=== PATIENT | female | born 1985 | race African-American/Black ===

== ENCOUNTER 2016-12-07 14:46 | Emergency (ER) | payer OTHER ==
[2016-12-07 15:02] VITALS: BP 133/94; PULSE 98; TEMP 98.4; BMI 17.2
[2016-12-07] MEDS ORDERED: SODIUM CHLORIDE 1,000 ML IV STA (15:53)
[2016-12-07 16:58] LABS: BASOPHIL 0.9 % (0-2.0); EOSINOPHIL 2.4 % (0-4.5); MCH 31.5 pg (25.7-33.7); MCHC 33.5 g/dl (32.0-36.0); MEAN CELL VOLUME 93.9 fl (80-96); MEAN PLT VOLUME 7.5 fl (7.5-11.1); NEUTROPHILS 63.2 % (42.8-82.8); PLATELET COUNT 253 K/MM3 (134-434); RDW 12.7 % (11.6-15.6); WHITE BLOOD COUNT 6.2 K/mm3 (4.0-10.0)
--- NOTE | 2016-12-07 17:15 | PDOC ---
*Physical Exam - Vital Signs Last Vital Signs Temp Pulse Resp BP Pulse Ox 98.4 F 98 H 18 133/94 95 12/07/16 15:00 12/07/16 15:00 12/07/16 15:00 12/07/16 15:00 12/07/16 15:00 ED Treatment Course - LABORATORY CBC & Chemistry Diagram: 12/07/16 16:36 12/07/16 16:36 - ADDITIONAL ORDERS Additional order review: 12/07/16 16:36 RBC 3.88 MCV 93.9 MCHC 33.5 RDW 12.7 D MPV 7.5 Neutrophils % 63.2 Lymphocytes % 28.4 D Monocytes % 5.1 Eosinophils % 2.4 Basophils % 0.9 Medical Decision Making - Medical Decision Making 12/07/16 17:15 Case discussed with [facility] Plan as per [facility]
[2016-12-07 17:29] LABS: ANION GAP 8 (8-16); BILIRUBIN,TOTAL 0.4 mg/dL (0.2-1.0); CO2 25 mmol/L (21-32); CREATININE 0.7 mg/dL (0.55-1.02); GLUCOSE,RANDOM 72 mg/dL (74-106); MAGNESIUM 2.1 mg/dL (1.8-2.4); SGOT/AST 15 U/L (15-37); SGPT/ALT 42 U/L (12-78); TOT PROT 7.1 g/dl (6.4-8.2)
[2016-12-07 17:32] LABS: ALK PHOS 66 U/L (45-117); TROPONIN I < 0.02 ng/ml (0.00-0.05)
--- NOTE | 2016-12-07 17:58 | PDOC ---
History of Present Illness - General Chief Complaint: Pain Stated Complaint: PAIN Time Seen by Provider: 12/07/16 15:20 History Source: Patient Exam Limitations: No Limitations - History of Present Illness Initial Comments: 12/07/16 15:53 31-year-old female with history of anxiety depression and pancreatitis presents with complaints of decreased appetite, decreased energy, back pain, neck pain, leg pain, abdominal pain and chest pain. Patient states has felt very anxious after her father causing her decreased appetite but denies any hopelessness plan to injure self or others. Patient states is currently on Xanax and Remeron with moderate improvement of symptoms. Patient is awake fever , chills, headache, dizziness, palpitations, nausea, diarrhea, dysuria or irregular menses. Timing/Duration: getting worse, intermittent Severity: moderate Associated Symptoms: reports: chest pain, loss of appetite, weakness Past History - Travel Traveled outside of the country in the last 30 days: No Close contact w/someone who was outside of country & ill: No - Past Medical History Allergies/Adverse Reactions: Allergies Allergy/AdvReac Type Severity Reaction Status Date / Time shrimp Allergy Severe Verified 03/30/16 19:29 iodine [Iodine] Allergy Mild Swelling Verified 03/30/16 19:29 duloxetine HCl AdvReac Mild anxious, Verified 03/30/16 19:29 [From Cymbalta] panic tramadol HCl [From Rybix ODT] AdvReac Mild Nausea Verified 03/30/16 19:29 acetaminophen [From Tylenol] AdvReac Verified 03/30/16 19:38 Home Medications: Ambulatory Orders Albuterol 2.5/Ipratropium 0.5 [Duoneb -] 1 neb NEB Q4H #14 vial 03/30/16 Albuterol Sulfate Inhaler - [Ventolin Hfa Inhaler -] 1 - 2 inh PO Q4H #1 inhaler 03/30/16 Alprazolam [Xanax] 1 mg PO BID 03/30/16 Mirtazapine [Remeron -] 15 mg PO DAILY 03/30/16 Nebulizer Accessories [A.i.r.s. Nebulizer] 1 each MC ONCE #1 kit 03/30/16 Nebulizer Accessories [Adult Aerosol Mask] 1 each MC ONCE #1 each 03/30/16 Prednisone [Deltasone -] 40 mg PO DAILY #10 tablet 03/30/16 Anemia: Yes Asthma: No Cancer: No Cardiac Disorders: No Diabetes: No HTN: No Psychiatric Problems: Yes (ANXIETY) Suicide Attempt (Hx): No Seizures: No Thyroid Disease: No - Surgical History Abdominal Surgery: No Appendectomy: No Cardiac Surgery: No Cholecystectomy: No Orthopedic Surgery: Yes (R KNEE) - Reproductive History Para: 1 Therapeutic (s) & number: Yes - Immunization History Immunization Up to Date: Yes - Psycho/Social/Smoking Cessation Hx Anxiety: No Suicidal Ideation: No Smoking Status: Yes Smoking History: Current every day smoker Have you smoked in the past 12 months: Yes Number of Cigarettes Smoked Daily: 5 If you are a former smoker, when did you quit?: June 2015 Information on smoking cessation initiated: No 'Breaking Loose' booklet given: 10/29/14 Hx Alcohol Use: No Drug/Substance Use Hx: No Substance Use Type: None Hx Substance Use Treatment: No Patient Lives Alone: No Lives with/in: parents (I) Review of Systems - Review of Systems Able to Perform ROS?: Yes Constitutional: Yes: Loss of Appetite, Weakness HEENTM: No: Symptoms Reported Respiratory: No: Symptoms reported Cardiac (ROS): Yes: Chest Pain ABD/GI: Yes: Poor Appetite, Poor Fluid Intake, Abdominal cramping : No: Symptoms Reported Musculoskeletal: Yes: Back Pain Integumentary: No: Symptoms Reported Neurological: Yes: Weakness Psychiatric: Yes: Anxiety, Depression, Frequent Crying, Stressors, Sleep Pattern Change, Change in Appetite Endocrine: No: Symptoms Reported Hematologic/Lymphatic: No: Symptoms Reported *Physical Exam - Vital Signs Last Vital Signs Temp Pulse Resp BP Pulse Ox 98.4 F 98 H 18 133/94 95 12/07/16 15:00 12/07/16 15:00 12/07/16 15:00 12/07/16 15:00 12/07/16 15:00 - Physical Exam General Appearance: Yes: Nourished, Appropriately Dressed, Thin. No: Apparent Distress HEENT: positive: EOMI, JAMES, TMs Normal, Pharynx Normal (dry and a good). negative: Pale Conjunctivae Neck: positive: Supple Respiratory/Chest: positive: Lungs Clear, Normal Breath Sounds. negative: Respiratory Distress, Accessory Muscle Use Cardiovascular: positive: Regular Rhythm, Regular Rate. negative: Murmur Gastrointestinal/Abdominal: positive: Soft. negative: Tenderness Musculoskeletal: negative: CVA Tenderness Extremity: positive: Normal Capillary Refill. negative: Pedal Edema Integumentary: positive: Normal Color, Warm, Moist Neurologic: positive: Normal Mood/Affect, Motor Strength 5/5 (ambulatory) ED Treatment Course - LABORATORY CBC & Chemistry Diagram: 12/07/16 16:36 12/07/16 16:36 - ADDITIONAL ORDERS Additional order review: Laboratory Results 12/07/16 16:36 Sodium 142 Potassium 3.9 Chloride 109 H Carbon Dioxide 25 Anion Gap 8 BUN 10 D Creatinine 0.7 Creat Clearance w eGFR > 60 Random Glucose 72 L D Calcium 9.0 Magnesium 2.1 Total Bilirubin 0.4 D AST 15 ALT 42 D Alkaline Phosphatase 66 D Creatine Kinase 92 Troponin I < 0.02 Total Protein 7.1 Albumin 4.0 D Lipase 117 12/07/16 16:36 RBC 3.88 MCV 93.9 MCHC 33.5 RDW 12.7 D MPV 7.5 Neutrophils % 63.2 Lymphocytes % 28.4 D Monocytes % 5.1 Eosinophils % 2.4 Basophils % 0.9 Medical Decision Making - Medical Decision Making 12/07/16 17:56 Patient here with anxiety and depression stating she is unable to eat having decreased energy and weight loss. Patient has generalized body discomfort and on exam had no acute findings except for likely dehydration patient ordered for full work up including cardiac profile, EKG, electrolytes, CBC, lipase secondary to history of pancreatitis a few years ago, IV fluids, and urinalysis/ /drug toxicology
[2016-12-07 18:30] LABS: URINE APPEARANCE CLEAR; URINE BILIRUBIN NEGATIVE (NEGATIVE); URINE BLOOD NEGATIVE (NEGATIVE); URINE COLOR STRAW; URINE GLUCOSE (UA) NEGATIVE (NEGATIVE); URINE KETONE TRACE (NEGATIVE); URINE NITRITE NEGATIVE (NEGATIVE); URINE PROTEIN NEGATIVE (NEGATIVE); URINE UROBILINOGEN NEGATIVE E.U./dl (0.2-1.0)
[2016-12-07 18:37] LABS: URINE LEUK ESTERASE 2+ (NEGATIVE)
[2016-12-07 18:45] LABS: URINE MARIJUANA THC POSITIVE ng/ml (CUTOFF=50)
[2016-12-07] MEDS ORDERED: KETOROLAC TROMETHAMINE 30 MG/1 ML VIAL IVPUSH ONE (19:24)
[2016-12-07] MEDS ORDERED: oxyCODONE HCL 5 MG TABLET PO ONE (20:02)
--- NOTE | 2016-12-07 20:14 | PDOC ---
*Physical Exam - Vital Signs Last Vital Signs Temp Pulse Resp BP Pulse Ox 98.4 F 98 H 18 133/94 95 12/07/16 15:00 12/07/16 15:00 12/07/16 15:00 12/07/16 15:00 12/07/16 15:00 - Physical Exam Comments: 12/07/16 20:04 Sign-out received from outgoing ER provider Douglas. Pt interviewed and examined. Ancillary studies reviewed. Awaiting labs. Patient continues to complain of pain. Serum preg negative, will order Toradol. Patient refuses Toradol and states she does not want morphine because "it doesn' t feel right in my body." She states that she was given Dilaudid previously which made her feel better. Had extensive conversation with patient regarding pain medications, patient states she has been to pain management doctors before and that she has used oxycodone previously which "I guess helped." When patient was told she would not be getting Dilaudid she began getting agitated and states "Well then just give me the paperwork so I can go home." Patient reports that her children's father will be picking her up and that she would not be driving. Told patient that she would receive one oxycodone prior to discharge and that she needs to continue following up with pain management for further management of her pain. Patient verbalized understanding and agreed to plan. ED Treatment Course - LABORATORY CBC & Chemistry Diagram: 12/07/16 16:36 12/07/16 16:36 - ADDITIONAL ORDERS Additional order review: Laboratory Results 12/07/16 12/07/16 12/07/16 18:19 16:45 16:36 Sodium 142 Potassium 3.9 Chloride 109 H Carbon Dioxide 25 Anion Gap 8 BUN 10 D Creatinine 0.7 Creat Clearance w eGFR > 60 Random Glucose 72 L D Calcium 9.0 Magnesium 2.1 Total Bilirubin 0.4 D AST 15 ALT 42 D Alkaline Phosphatase 66 D Creatine Kinase 92 Troponin I < 0.02 Total Protein 7.1 Albumin 4.0 D Lipase 117 Serum , Qual Negative Urine Color Urine Appearance Urine pH Urine Protein Urine Glucose (UA) Urine Ketones Urine Blood Urine Nitrite Urine Bilirubin Urine Urobilinogen Ur Leukocyte Esterase Opiates Screen Positive Methadone Screen Negative Barbiturate Screen Negative Phencyclidine Screen Negative Ur Amphetamines Screen Negative MDMA (Ecstasy) Screen Negative Benzodiazepines Screen Positive Cocaine Screen Negative U Marijuana (THC) Screen Positive 12/07/16 16:36 Sodium Potassium Chloride Carbon Dioxide Anion Gap BUN Creatinine Creat Clearance w eGFR Random Glucose Calcium Magnesium Total Bilirubin AST ALT Alkaline Phosphatase Creatine Kinase Troponin I Total Protein Albumin Lipase Serum , Qual Urine Color Straw Urine Appearance Clear Urine pH 7.0 Urine Protein Negative Urine Glucose (UA) Negative Urine Ketones Trace H Urine Blood Negative Urine Nitrite Negative Urine Bilirubin Negative Urine Urobilinogen Negative Ur Leukocyte Esterase 2+ H Opiates Screen Methadone Screen Barbiturate Screen Phencyclidine Screen Ur Amphetamines Screen MDMA (Ecstasy) Screen Benzodiazepines Screen Cocaine Screen U Marijuana (THC) Screen 12/07/16 16:36 RBC 3.88 MCV 93.9 MCHC 33.5 RDW 12.7 D MPV 7.5 Neutrophils % 63.2 Lymphocytes % 28.4 D Monocytes % 5.1 Eosinophils % 2.4 Basophils % 0.9 *DC/Admit/Observation/Transfer Diagnosis at time of Disposition: Generalized pain - Discharge Dispostion Disposition: HOME Condition at time of disposition: Stable Admit: No - Referrals Referrals: Senthil Barry MD [Staff Physician] - - Patient Instructions Additional Instructions: Please follow up with pain management for further evaluation of your pain as discussed. If you experience any new or worsening symptoms, please return to the ER.
[2016-12-07] MEDS ORDERED: oxyCODONE HCL 5 MG TABLET ONE (20:15)
--- NOTE | 2016-12-08 12:27 | EKG ---
Test Reason : Blood Pressure : / mmHG Vent. Rate : 077 BPM Atrial Rate : 077 BPM P-R Int : 164 ms QRS Dur : 074 ms QT Int : 348 ms P-R-T Axes : 050 015 047 degrees QTc Int : 393 ms NORMAL SINUS RHYTHM NORMAL ECG WHEN COMPARED WITH ECG OF 27-NOV-2015 16:13, NO SIGNIFICANT CHANGE WAS FOUND Confirmed by JANIS ONEIL MD ([id number]) on 12/08/2016 12:27:04 PM Referred By: Confirmed By:JANIS ONEIL MD
== END 2016-12-07 20:42 | disposition home or self-care (01) ==
LOC: JER 14:46
PROC: 3E0337Z Introduction of Electrolytic and Water Balance Substance into Peripheral Vein, Percutaneous Approach (ICD-10-PCS; principal; 2016-12-07)
DX: F41.8 Other specified anxiety disorders (principal)
CPT/HCPCS: 36415; 80053; 80307; 81003; 81015; 82550; 83690; 83735; 84484; 84703; 85025; 93005; 93010; 96360; 99283-25

== ENCOUNTER 2018-03-14 19:42 | Emergency (ER) | payer OTHER ==
[2018-03-14 20:05] VITALS: BP 123/95; PULSE 81; TEMP 98.9; BMI 19.8
--- NOTE | 2018-03-14 20:27 | PDOC ---
History of Present Illness - General Chief Complaint: Ear Problem Stated Complaint: EAR PAIN Time Seen by Provider: 03/14/18 20:14 - History of Present Illness Initial Comments: 32-year-old female without comorbidities presents for evaluation of right ear pain 2 weeks without associated symptoms. 03/14/18 20:23 Past History - Past Medical History Allergies/Adverse Reactions: Allergies Allergy/AdvReac Type Severity Reaction Status Date / Time shrimp Allergy Severe Verified 03/30/16 19:29 iodine [Iodine] Allergy Mild Swelling Verified 03/30/16 19:29 duloxetine HCl AdvReac Mild anxious, Verified 03/30/16 19:29 [From Cymbalta] panic tramadol HCl [From Rybix ODT] AdvReac Mild Nausea Verified 03/30/16 19:29 acetaminophen [From Tylenol] AdvReac Verified 03/30/16 19:38 Home Medications: Ambulatory Orders Mirtazapine [Remeron -] 15 mg PO DAILY 03/30/16 Oxycodone HCl [Oxycodone HCl ER] 15 mg PO Q6H 12/07/16 Alprazolam 2 mg PO ASDIR 03/14/18 Neomycin/Polymyxn/Hc [Cortisporin Otic Solution -] 4 drop AD QID 7 Days #1 bottle 03/14/18 Quetiapine Fumarate [Seroquel -] 50 mg PO HS 03/14/18 Venlafaxine HCl [Effexor -] 25 mg PO BID 03/14/18 Anemia: Yes Asthma: No Cancer: No Cardiac Disorders: No Diabetes: No HTN: No Psychiatric Problems: Yes (ANXIETY) Seizures: No Thyroid Disease: No - Surgical History Abdominal Surgery: No Appendectomy: No Cardiac Surgery: No Cholecystectomy: No Orthopedic Surgery: Yes (R KNEE) - Reproductive History Para: 1 Therapeutic (s) & number: Yes - Immunization History Immunization Up to Date: Yes - Suicide/Smoking/Psychosocial Hx Smoking Status: Yes Smoking History: Never smoked Have you smoked in the past 12 months: No Number of Cigarettes Smoked Daily: 5 If you are a former smoker, when did you quit?: June 2015 Information on smoking cessation initiated: No 'Breaking Loose' booklet given: 10/29/14 Hx Alcohol Use: No Drug/Substance Use Hx: No Substance Use Type: None Hx Substance Use Treatment: No Review of Systems - Review of Systems HEENTM: Yes: Ear Pain All Other Systems: Reviewed and Negative *Physical Exam - Vital Signs Last Vital Signs Temp Pulse Resp BP Pulse Ox 98.9 F 81 16 123/95 100 03/14/18 20:04 03/14/18 20:04 03/14/18 20:04 03/14/18 20:04 03/14/18 20:04 - Physical Exam Comments: HEAD: NC/AT EYES: Conjuntiva clear Ears: Left ear canal and tympanic membrane are normal. Right ear canal has mild purulent drainage and a ruptured tympanic membrane NOSE: No d/c THROAT: Moist mucous membrances, oral pharanx clear, uvula midline NECK: Supple without adenopathy CARDIAC: S1 S2 LUNGS: CTA Full and Equal breath sounds ABDOMEN: Soft NT ND MS: Full ROM in all joints without edema NEUROLOGIC: No gross sensory or motor deficits, NVID SKIN: Normal color and temperature no lesions or rashes 03/14/18 20:23 *DC/Admit/Observation/Transfer Diagnosis at time of Disposition: Otitis externa, Ruptured tympanic membrane - Discharge Dispostion Disposition: HOME Condition at time of disposition: Stable Decision to Admit order: No - Referrals Referrals: Cortez Arshad MD [Staff Physician] - - Patient Instructions Printed Discharge Instructions: Otitis Externa, DI for Otitis Externa, Ruptured Eardrum, DI for Tympanic Membrane Perforation-Adult Additional Instructions: Return to the emergency room should symptoms worsen or go unresolved. Please follow-up with ENT in one to 2 days for further evaluation and treatment options. May take Tylenol and Motrin for pain or discomfort he may have as directed. - Post Discharge Activity
== END 2018-03-14 20:29 | disposition home or self-care (01) ==
LOC: JERFT 19:42
DX: H60.8X1 Other otitis externa, right ear (principal); H72.91 Unspecified perforation of tympanic membrane, right ear; D64.9 Anemia, unspecified; F41.8 Other specified anxiety disorders
CPT/HCPCS: 99281-25

== ENCOUNTER 2018-05-16 21:11 | Emergency (ER) | payer OTHER ==
--- NOTE | 2018-05-16 21:27 | PDOC ---
Rapid Medical Evaluation Time Seen by Provider: 05/16/18 21:25 Medical Evaluation: Allergies Allergy/AdvReac Type Severity Reaction Status Date / Time shrimp Allergy Severe Verified 03/30/16 19:29 iodine [Iodine] Allergy Mild Swelling Verified 03/30/16 19:29 duloxetine HCl AdvReac Mild anxious, Verified 03/30/16 19:29 [From Cymbalta] panic tramadol HCl [From Rybix ODT] AdvReac Mild Nausea Verified 03/30/16 19:29 acetaminophen [From Tylenol] AdvReac Verified 03/30/16 19:38 05/16/18 21:25 I have performed a brief in-person evaluation of this patient. The patient presents with a chief complaint of: post-prandial abd pain Pertinent physical exam findings: +BS. SNTND. No masses. I have ordered the following: labs, urine, U/S The patient will proceed to the ED for further evaluation. Discharge Disposition - Diagnosis Abdominal pain - Referrals - Patient Instructions - Post Discharge Activity
[2018-05-16 22:07] LABS: URINE APPEARANCE SLCLOUDY; URINE BILIRUBIN NEGATIVE (<2.0 mg/dL); URINE COLOR YELLOW; URINE GLUCOSE (UA) NEGATIVE (NEGATIVE); URINE KETONE NEGATIVE (NEGATIVE); URINE LEUK ESTERASE NEGATIVE (NEGATIVE); URINE NITRITE NEGATIVE (NEGATIVE); URINE PROTEIN 1+ (NEGATIVE); URINE UROBILINOGEN NEGATIVE mg/dL (0.2-1.0)
== END 2018-05-16 21:30 | disposition left against medical advice (07) ==
LOC: JER 21:11
DX: R10.84 Generalized abdominal pain (principal)
CPT/HCPCS: 81003; 81015; 99281-25

== ENCOUNTER 2018-08-23 17:50 | Emergency (ER) | payer OTHER ==
[2018-08-23 18:21] VITALS: BP 136/95; PULSE 106; TEMP 98.3; BMI 19.5
--- NOTE | 2018-08-23 18:22 | PDOC ---
Rapid Medical Evaluation Chief Complaint: Cold Symptoms Medical Evaluation: Allergies Allergy/AdvReac Type Severity Reaction Status Date / Time shrimp Allergy Severe Verified 08/23/18 18:18 iodine [Iodine] Allergy Mild Swelling Verified 08/23/18 18:18 duloxetine HCl AdvReac Mild anxious, Verified 08/23/18 18:18 [From Cymbalta] panic tramadol HCl [From Rybix ODT] AdvReac Mild Nausea Verified 08/23/18 18:18 acetaminophen [From Tylenol] AdvReac Verified 08/23/18 18:18 03 18:22 I have performed a brief in-person evaluation of this patient. The patient presents with a chief complaint of: cough, cold symptoms / weakness x 2 days - children ill with same Pertinent physical exam findings: pale/ congested I have ordered the following: influenza The patient will proceed to the ED for further evaluation.
[2018-08-23] MEDS ORDERED: IBUPROFEN 600 MG TABLET (FP) PO ONE ×2 (19:04→19:27)
--- NOTE | 2018-08-23 19:06 | PDOC ---
History of Present Illness - General Chief Complaint: Cold Symptoms Stated Complaint: SORE THROAT/EAR ACHE/CHEST PAIN Time Seen by Provider: 08/23/18 19:03 History Source: Patient, Parent(s) - History of Present Illness Initial Comments: 08/23/18 20:16 32-year-old female with body aches, throat pain, URI, congestion at home for the last 2 days. Patient is here with 2 children with similar symptoms. Denies fevers/chills. Denies nausea, vomiting, diarrhea, Adriel pain, urinary symptoms , chest pain Past medical history of asthma, smoker, mental illness Past History - Past Medical History Allergies/Adverse Reactions: Allergies Allergy/AdvReac Type Severity Reaction Status Date / Time shrimp Allergy Severe Verified 08/23/18 18:18 iodine [Iodine] Allergy Mild Swelling Verified 08/23/18 18:18 duloxetine HCl AdvReac Mild anxious, Verified 08/23/18 18:18 [From Cymbalta] panic tramadol HCl [From Rybix ODT] AdvReac Mild Nausea Verified 08/23/18 18:18 acetaminophen [From Tylenol] AdvReac Verified 08/23/18 18:18 Home Medications: Ambulatory Orders Mirtazapine [Remeron -] 15 mg PO DAILY 03/30/16 Oxycodone HCl [Oxycodone HCl ER] 15 mg PO Q6H 12/07/16 Alprazolam 2 mg PO ASDIR 03/14/18 Neomycin/Polymyxn/Hc [Cortisporin Otic Solution -] 4 drop AD QID 7 Days #1 bottle 03/14/18 Quetiapine Fumarate [Seroquel -] 50 mg PO HS 03/14/18 Venlafaxine HCl [Effexor -] 25 mg PO BID 03/14/18 Amoxicillin - [Amoxicillin 875mg Tablet -] 875 mg PO BID #20 tablet 08/23/18 Anemia: Yes Asthma: No Cancer: No Cardiac Disorders: No Diabetes: No HTN: No Psychiatric Problems: Yes (ANXIETY) Seizures: No Thyroid Disease: No - Surgical History Abdominal Surgery: No Appendectomy: No Cardiac Surgery: No Cholecystectomy: No Orthopedic Surgery: Yes (R KNEE) - Reproductive History Para: 1 Therapeutic (s) & number: Yes - Immunization History Immunization Up to Date: Yes - Suicide/Smoking/Psychosocial Hx Smoking Status: Yes Smoking History: Current every day smoker Have you smoked in the past 12 months: No Number of Cigarettes Smoked Daily: 20 If you are a former smoker, when did you quit?: June 2015 Information on smoking cessation initiated: No 'Breaking Loose' booklet given: 10/29/14 Hx Alcohol Use: No Drug/Substance Use Hx: No Substance Use Type: None Hx Substance Use Treatment: No Respiratory Specific PMHX - Complaint Specific PMHX Angina: No Bronchitis: Yes Pneumonia: No Pulmonary Embolus: No TB (Tuberculosis): No Review of Systems - Review of Systems Able to Perform ROS?: Yes Is the patient limited [place]uran proficient: No Constitutional: No: Symptoms Reported, See HPI, Chills, Diaphoresis, Fever, Loss of Appetite, Malaise, Night Sweats, Weakness, Weight Stable, Unintentional Wgt. Loss, Unexplained wgt Loss, Other HEENTM: Yes: Nose Congestion, Throat Pain. No: Symptoms Reported, See HPI, Eye Pain, Blurred Vision, Tearing, Recent change in vision, Double Vision, Cataracts , Ear Pain, Ocular Prothesis, Ear Discharge, Nose Pain, Tinnitus, Nose Bleeding , Hearing Loss, Throat Swelling, Mouth Pain, Dental Problems, Difficulty Swallowing, Mouth Swelling, Other Respiratory: Yes: Cough. No: Symptoms reported, See HPI, Orthopnea, Shortness of Breath, SOB with Exertion, SOB at Rest, Stridor, Wheezing, Productive cough, Hemoptysis, Other Cardiac (ROS): No: Symptoms Reported, See HPI, Chest Pain, Edema, Irregular Heart Rate, Lightheadedness, Palpitations, Syncope, Chest Tightness, Other *Physical Exam - Vital Signs Last Vital Signs Temp Pulse Resp BP Pulse Ox 98.3 F 106 H 20 136/95 98 08/23/18 18:19 08/23/18 18:19 08/23/18 18:19 08/23/18 18:19 08/23/18 18:19 - Physical Exam General Appearance: Yes: Appropriately Dressed HEENT: positive: Pharyngeal Erythema Neck: positive: Lymphadenopathy (R), Lymphadenopathy (L) Respiratory/Chest: positive: Lungs Clear, Normal Breath Sounds Cardiovascular: positive: Regular Rhythm, Regular Rate Gastrointestinal/Abdominal: positive: Normal Bowel Sounds, Soft Musculoskeletal: positive: Normal Inspection Extremity: positive: Normal Capillary Refill, Normal Inspection, Normal Range of Motion Integumentary: positive: Normal Color, Dry, Warm Neurologic: positive: Fully Oriented, Alert, Normal Mood/Affect Moderate Sedation - Procedure Monitoring Vital Signs: Procedure Monitoring Vital Signs Temperature 98.3 F 08/23/18 18:19 Pulse Rate 106 H 08/23/18 18:19 Respiratory Rate 20 08/23/18 18:19 Blood Pressure 136/95 08/23/18 18:19 O2 Sat by Pulse Oximetry (%) 98 08/23/18 18:19 Progress Note - Progress Note Progress Note: A: uri p: supportive care close PCP follow up *DC/Admit/Observation/Transfer Diagnosis at time of Disposition: Pharyngitis Qualifiers: Pharyngitis/tonsillitis etiology: streptococcus Qualified Code(s): J02.0 - Streptococcal pharyngitis - Discharge Dispostion Disposition: HOME - Prescriptions Prescriptions: Amoxicillin - [Amoxicillin 875mg Tablet -] 875 mg PO BID #20 tablet - Referrals - Patient Instructions Printed Discharge Instructions: Strep Throat Additional Instructions: encourage plenty of fluid in take take Tylenol every 6 hours as needed for pain take ibuprofen every 6 hours as needed for pain - Post Discharge Activity Forms/Work/School Notes: Back to Work
== END 2018-08-23 20:39 | disposition home or self-care (01) ==
LOC: JERFT 17:50
DX: J02.0 Streptococcal pharyngitis (principal); B95.0 Streptococcus, group A, as the cause of diseases classified elsewhere; F41.8 Other specified anxiety disorders; Z88.8 Allergy status to other drugs, medicaments and biological substances
CPT/HCPCS: 87804; 87880; 99281-25

== ENCOUNTER 2019-06-22 22:18 | Emergency (ER) | payer OTHER ==
[2019-06-22 22:36] VITALS: BP 121/76; TEMP 97.8; BMI 18.5
--- NOTE | 2019-06-22 23:48 | PDOC ---
Attending Attestation - Resident Resident Name: Jose Adams - HPI HPI: 06/23/19 01:30 Pt presents to the ED complaining of pleuritic chest wall pain after sleeping on a toy. Also complains of shortness of breath that seems to be primarily related to the pain. Denies fever or cough. patient is a smoker, but denies OCP use. - Physicial Exam PE: 06/23/19 01:58 Agree with resident exam. PAtient is alert and oriented an in no acute distress. Lungs are clear. + R sided chest wall tenderness. CV: rrr no m/r/g. - Medical Decision Making 06/23/19 01:59 Pt presents to the ED complaining of pleuritic chest pain. PERC negative. CXR is normal. Pain is most consistent with muscular chest pain. Will give pain control and discharge home with instructions to return to the ED for worsening symptoms.
[2019-06-23] MEDS ORDERED: ACETAMINOPHEN 325 MG TABLET (FP) ONE (00:21)
--- NOTE | 2019-06-23 00:24 | PDOC ---
History of Present Illness - History of Present Illness Initial Comments: The pt is a 33F w/ a history of anxiety who presents for evaluation of 4 days of R thoracic wall pain. The pain is intermittent, achy, worse with cough/touch/ movement of RUE, and not alleviated by anything she can identify. She also reports 3-4 days of myalgias, fatigue, N, NBNB x1 yesterday, diarrhea which has since resolved. Tried taking something for her symptoms early today with some relief early today. She denies fevers, SOB, vision changes, GONZALEZ, changes in sensation, weakness, dysuria, hematuria, or blood in her stool. Denies recent travel, OCPs, history of DVT/PE, or family history of DVT/PE 06/23/19 00:23 <Jose Adams - Last Filed: 06/23/19 01:00> <Parvin Casillas - Last Filed: 06/23/19 01:34> - General Chief Complaint: Pain Stated Complaint: CHEST PAIN Time Seen by Provider: 06/22/19 23:47 Past History - Past Medical History Anemia: Yes Asthma: Yes Cancer: No Cardiac Disorders: No COPD: No Diabetes: No HTN: No Psychiatric Problems: Yes (ANXIETY) Seizures: No Thyroid Disease: No - Surgical History Abdominal Surgery: No Appendectomy: No Cardiac Surgery: No Cholecystectomy: No Orthopedic Surgery: Yes (R KNEE) - Reproductive History Para: 1 Therapeutic (s) & number: Yes - Immunization History Immunization Up to Date: Yes - Psycho Social/Smoking Cessation Hx Smoking Status: Yes Smoking History: Current every day smoker Have you smoked in the past 12 months: No Number of Cigarettes Smoked Daily: 10 If you are a former smoker, when did you quit?: June 2015 Information on smoking cessation initiated: No 'Breaking Loose' booklet given: 10/29/14 Hx Alcohol Use: No Drug/Substance Use Hx: No Substance Use Type: None Hx Substance Use Treatment: No <Jose Adams - Last Filed: 06/23/19 01:00> <Parvin Casillas - Last Filed: 06/23/19 01:34> - Past Medical History Allergies/Adverse Reactions: Allergies Allergy/AdvReac Type Severity Reaction Status Date / Time shrimp Allergy Severe Verified 06/22/19 22:33 iodine [Iodine] Allergy Mild Swelling Verified 06/22/19 22:33 duloxetine HCl AdvReac Mild anxious, Verified 06/22/19 22:33 [From Cymbalta] panic tramadol HCl [From Rybix ODT] AdvReac Mild Nausea Verified 06/22/19 22:33 acetaminophen [From Tylenol] AdvReac Verified 06/22/19 22:33 Home Medications: Ambulatory Orders Alprazolam [Xanax] 2 mg PO BID 06/22/19 Ibuprofen [Motrin -] 600 mg PO TID #21 tablet 06/23/19 Review of Systems - Review of Systems Able to Perform ROS?: Yes Comments:: GENERAL/CONSTITUTIONAL: No fever or chills HEAD, EYES, EARS, NOSE AND THROAT: No change in vision. No change in hearing. No sore throat CARDIOVASCULAR: No shortness of breath RESPIRATORY: Denies hemoptysis GASTROINTESTINAL: No nausea, vomiting, diarrhea or constipation today GENITOURINARY: No dysuria, frequency, or change in urination MUSCULOSKELETAL: per HPI SKIN: No rash NEUROLOGIC: No headache, vertigo, loss of consciousness, or change in strength/ sensation ENDOCRINE: No increased thirst. No abnormal weight change HEMATOLOGIC/LYMPHATIC: No anemia, easy bleeding, or history of blood clots ALLERGIC/IMMUNOLOGIC: No hives or skin allergy 06/23/19 01:01 Is the patient limited Pakistani proficient: No <Jose Adams - Last Filed: 06/23/19 01:00> *Physical Exam - Vital Signs Last Vital Signs Temp Pulse Resp BP Pulse Ox 97.8 F 94 H 18 121/76 97 06/22/19 22:33 06/22/19 22:33 06/22/19 22:33 06/22/19 22:33 06/22/19 22:33 - Physical Exam GENERAL: Awake, alert, and oriented to person/place/time, in no acute distress HEAD: No signs of trauma, normocephalic, atraumatic EYES: PERRLA, EOMI, sclera anicteric, conjunctiva clear ENT: Hearing grossly normal, nares patent, oropharynx clear without exudates. Moist mucosa LUNGS: No distress, speaks in full sentences, clear to auscultation bilaterally HEART: Regular rate and rhythm, normal S1 and S2, no murmurs appreciated, peripheral pulses normal and equal bilaterally CHEST: R mid-axillary thoracic wall TTP over ribs 3-5, no bony crepitus, no ecchymosis ABDOMEN: Soft, nontender, normoactive bowel sounds. No guarding, no rebound EXTREMITIES: Normal inspection, Normal range of motion, no edema. No clubbing or cyanosis NEUROLOGICAL: Cranial nerves II through XII grossly intact. Normal speech, normal gait, no focal sensorimotor deficits SKIN: Warm, Dry 06/23/19 01:04 <Jose Adams - Last Filed: 06/23/19 01:00> - Vital Signs Last Vital Signs Temp Pulse Resp BP Pulse Ox 97.8 F 94 H 18 121/76 97 06/22/19 22:33 06/22/19 22:33 06/22/19 22:33 06/22/19 22:33 06/22/19 22:33 <Parvin Casillas - Last Filed: 06/23/19 01:34> ED Treatment Course - RADIOLOGY Radiology Studies Ordered: Category Date Time Status CXRPORT [CHEST X-RAY PORTABLE*] [RAD] Stat Radiology 06/23/19 00:11 Taken - Medications Given in the ED: ED Medications Discontinued Medications Generic Name Dose Route Start Last Admin Trade Name Freq PRN Reason Stop Dose Admin Ketorolac Tromethamine 30 mg 06/23/19 01:06 06/23/19 01:12 Toradol Injection - IM 06/23/19 01:07 30 mg ONCE ONE Administration <Parvin Casillas - Last Filed: 06/23/19 01:34> Medical Decision Making - Medical Decision Making The pt is a 33F w/ a history of anxiety who presents for evaluation of 4 days of R thoracic wall pain. She also reports 3-4 days of myalgias, fatigue, N, NBNB x1 yesterday, diarrhea which has since resolved. ED Course CXR w/o acute pathology Pt given Tylenol and Toradol for symptomatic relief Pt is PERC neg -No need for further workup, as <2% chance of PE. -If no criteria are positive and clinicians pre-test probability is <15%, PERC Rule criteria are satisfied. 06/23/19 01:07 <Jose Adams - Last Filed: 06/23/19 01:00> Discharge - Discharge Information Problems reviewed: Yes - Admission No <Jose Adams - Last Filed: 06/23/19 01:00> <Parvin Casillas - Last Filed: 06/23/19 01:34> - Discharge Information Clinical Impression/Diagnosis: Chest wall pain Condition: Stable Disposition: HOME - Additional Discharge Information Prescriptions: Ibuprofen [Motrin -] 600 mg PO TID #21 tablet - Follow up/Referral Referrals: [facility] [place] [Provider Group] - Patient Discharge Instructions Patient Printed Discharge Instructions: DI for Musculoskeletal Pain Additional Instructions: You were seen here for evaluation of chest wall pain, muscle pains, and fatigue. Your xray was negative for evidence of pneumonia or rib fracture. Your symptoms are likely related to a virus and will likely self resolve within a week. Review the handout provided at discharge. Be sure to frequently wash your hands. Avoid close contact with young children, elderly, or weak immune system. For pain you may take Tylenol 650mg every 6 hours and Ibuprofen 600mg every 6-8 hours, alternating them each time. Return to the Emergency Department if you develop fevers, chest pain, trouble breathing, worsening pain, change in sensation, worsening symptoms, or any new/ concerning symptoms. - Post Discharge Activity Work/Back to School Note: Back to Work
[2019-06-23] MEDS ORDERED: KETOROLAC TROMETHAMINE 15 MG/ML VIAL IM ONE ×2 (01:06)
[2019-06-23 01:41] VITALS: PULSE 80
--- NOTE | 2019-06-23 17:02 | EKG ---
Test Reason : Blood Pressure : / mmHG Vent. Rate : 087 BPM Atrial Rate : 087 BPM P-R Int : 158 ms QRS Dur : 064 ms QT Int : 338 ms P-R-T Axes : 068 003 042 degrees QTc Int : 406 ms NORMAL SINUS RHYTHM WITH SINUS ARRHYTHMIA POSSIBLE LEFT ATRIAL ENLARGEMENT BORDERLINE ECG WHEN COMPARED WITH ECG OF 07-DEC-2016 15:06, NO SIGNIFICANT CHANGE WAS FOUND Confirmed by JERARDO MEADOWS MD ([id number]) on 06/23/2019 5:02:04 PM Referred By: Confirmed By:JERARDO MEADOWS MD
== END 2019-06-23 01:40 | disposition home or self-care (01) ==
LOC: JER 22:18
PROC: 3E0233Z Introduction of Anti-inflammatory into Muscle, Percutaneous Approach (ICD-10-PCS; principal; 2019-06-22)
DX: R07.89 Other chest pain (principal); D64.9 Anemia, unspecified; J45.909 Unspecified asthma, uncomplicated; F41.9 Anxiety disorder, unspecified; Z91.013 Allergy to seafood; Z91.018 Allergy to other foods; Z88.8 Allergy status to other drugs, medicaments and biological substances; Z88.6 Allergy status to analgesic agent
CPT/HCPCS: 71045-TC-FY; 93005; 93010; 96372; 99282-25

== ENCOUNTER 2019-07-22 20:26 | Emergency (ER) | payer OTHER ==
[2019-07-22 20:34] VITALS: BP 120/75; PULSE 67; TEMP 98.3; BMI 20.2
[2019-07-22] MEDS ORDERED: IBUPROFEN 600 MG TABLET (FP) PO ONE (22:11)
--- NOTE | 2019-07-22 22:13 | PDOC ---
History of Present Illness - General Chief Complaint: Nausea/Vomiting Stated Complaint: NAUSEA VOMITTING Time Seen by Provider: 07/22/19 21:33 - History of Present Illness Initial Comments: 07/22/19 22:11 33-year-old female with headache and flulike symptoms which started today. Daughter diagnosed with influenza Past History - Past Medical History Allergies/Adverse Reactions: Allergies Allergy/AdvReac Type Severity Reaction Status Date / Time shrimp Allergy Severe Verified 07/22/19 20:29 iodine [Iodine] Allergy Mild Swelling Verified 07/22/19 20:29 duloxetine HCl AdvReac Mild anxious, Verified 07/22/19 20:29 [From Cymbalta] panic tramadol HCl [From Rybix ODT] AdvReac Mild Nausea Verified 07/22/19 20:29 acetaminophen [From Tylenol] AdvReac Verified 07/22/19 20:29 Home Medications: Ambulatory Orders Alprazolam [Xanax] 2 mg PO BID 06/22/19 Ibuprofen [Motrin -] 600 mg PO TID #21 tablet 06/23/19 Anemia: Yes Asthma: Yes Cancer: No Cardiac Disorders: No COPD: No Diabetes: No HTN: No Psychiatric Problems: Yes (ANXIETY) Seizures: No Thyroid Disease: No - Surgical History Abdominal Surgery: No Appendectomy: No Cardiac Surgery: No Cholecystectomy: No Orthopedic Surgery: Yes (R KNEE) - Reproductive History Para: 1 Therapeutic (s) & number: Yes - Immunization History Immunization Up to Date: Yes - Psycho Social/Smoking Cessation Hx Smoking Status: Yes Smoking History: Current every day smoker Have you smoked in the past 12 months: No Number of Cigarettes Smoked Daily: 3 If you are a former smoker, when did you quit?: June 2015 Information on smoking cessation initiated: No 'Breaking Loose' booklet given: 10/29/14 Hx Alcohol Use: No Drug/Substance Use Hx: No Substance Use Type: None Hx Substance Use Treatment: No Review of Systems - Review of Systems Constitutional: Yes: Fever HEENTM: Yes: Nose Congestion Respiratory: Yes: Cough ABD/GI: Yes: Nausea Neurological: Yes: Headache *Physical Exam - Vital Signs Last Vital Signs Temp Pulse Resp BP Pulse Ox 98.3 F 67 18 120/75 99 07/22/19 20:31 07/22/19 20:31 07/22/19 20:31 07/22/19 20:31 07/22/19 20:31 - Physical Exam 07/22/19 22:11 GENERAL: The patient is awake, alert, and fully oriented, in no acute distress. HEAD: Normal with no signs of trauma. EYES: sclera anicteric, conjunctiva clear. ENT: Ears normal tympanic membranes normal oropharynx clear uvula midline NECK: Normal range of motion LUNGS: Breath sounds equal, clear to auscultation bilaterally. No wheezes, and no crackles. HEART: S1 and S2 without murmur, rub or gallop. ABDOMEN: Soft, nontender, normoactive bowel sounds. No guarding, no rebound. No masses. EXTREMITIES: Normal range of motion, no edema. No clubbing or cyanosis. No cords, erythema, or tenderness. NEUROLOGICAL: Cranial nerves II through XII grossly intact. PSYCH: Normal mood, normal affect. SKIN: Warm, Dry, normal turgor, no rashes or lesions noted. Medical Decision Making - Medical Decision Making 07/22/19 22:12 We will treat for influenza based on sick contact and symptom Discharge - Discharge Information Problems reviewed: Yes Clinical Impression/Diagnosis: Influenza-like illness Condition: Stable Disposition: HOME - Admission No - Follow up/Referral Referrals: Chiki Yuan MD [Staff Physician] - - Patient Discharge Instructions Additional Instructions: Motrin as directed for fever and body aches. Return to the emergency room for worsening symptoms and without fail follow-up with your primary care physician in 1 to 2 days for further evaluation and treatment options. Please take the Tamiflu as directed. - Post Discharge Activity
== END 2019-07-22 22:15 | disposition home or self-care (01) ==
LOC: JERFT 20:26
DX: J11.1 Influenza due to unidentified influenza virus with other respiratory manifestations (principal)
CPT/HCPCS: 99281-25

== ENCOUNTER 2020-02-21 11:23 | Emergency (ER) | payer OTHER ==
[2020-02-21 11:32] VITALS: TEMP 98.7; BMI 23.6
--- NOTE | 2020-02-21 12:15 | PDOC ---
History of Present Illness - General Chief Complaint: Laceration Stated Complaint: LT THUMB LAC Time Seen by Provider: 02/21/20 11:57 - History of Present Illness Initial Comments: 02/21/20 12:08 34yo F with PMH of anxiety, PTSD, asthma, anemia presents with a laceration to her left thumb. States she cut it on a metal piece of a dry erase board that she was breaking in hands with her hands to fit into the garbage. States she maybe lost 3 fl oz of blood. [place] faint, but did not pass out. 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 PMH/PSH: as above Home Medications Medication Instructions Recorded Alprazolam [Xanax] 2 mg PO BID 06/22/19 Ibuprofen [Motrin -] 600 mg PO TID #21 tablet 06/23/19 Oseltamivir Phosphate [Tamiflu] 75 mg PO BID #10 capsule 07/22/19 Allergies Allergy/AdvReac Type Severity Reaction Status Date / Time shrimp Allergy Severe Verified 07/22/19 20:29 iodine [Iodine] Allergy Mild Swelling Verified 07/22/19 20:29 duloxetine HCl AdvReac Mild anxious, Verified 07/22/19 20:29 [From Cymbalta] panic tramadol HCl [From Rybix ODT] AdvReac Mild Nausea Verified 07/22/19 20:29 acetaminophen [From Tylenol] AdvReac Verified 07/22/19 20:29 ROS GENERAL/CONSTITUTIONAL: No fever or chills. HEAD, EYES, EARS, NOSE AND THROAT: No change in vision. No ear pain or discharge. No sore throat. CARDIOVASCULAR: No chest pain or shortness of breath RESPIRATORY: No cough, wheezing, or hemoptysis. GASTROINTESTINAL: No nausea, vomiting, diarrhea or constipation. GENITOURINARY: No dysuria, frequency, or change in urination. MUSCULOSKELETAL: No joint or muscle swelling or pain. No neck or back pain. SKIN: No rash NEUROLOGIC: No headache, vertigo, loss of consciousness, or change in strength/sensation. ENDOCRINE: No increased thirst. No abnormal weight change HEMATOLOGIC/LYMPHATIC: No easy bleeding, or history of blood clots. ALLERGIC/IMMUNOLOGIC: No hives or skin allergy. PE GENERAL: Awake, alert, and fully oriented, in no acute distress HEAD: No signs of trauma, normocephalic, atraumatic EYES: PERRLA, EOMI, sclera anicteric, conjunctiva clear ENT: Auricles normal inspection, hearing grossly normal, nares patent, oropharynx clear without exudates. Moist mucosa NECK: Normal ROM, supple, no lymphadenopathy, JVD, or masses LUNGS: No distress, speaks full sentences, clear to auscultation bilaterally HEART: Regular rate and rhythm, normal S1 and S2, no murmurs, rubs or gallops, peripheral pulses normal and equal bilaterally. ABDOMEN: Soft, nontender, normoactive bowel sounds. No guarding, no rebound. No masses EXTREMITIES : 2cm laceration to distal palmar aspect of left thumb. Normal range of motion, no edema. No clubbing or cyanosis. NEUROLOGICAL: Cranial nerves II through XII grossly intact. Normal speech, normal gait, no focal sensorimotor deficits SKIN: Warm, Dry, normal turgor, no rashes or lesions noted Vital Signs Temp Pulse Resp BP Pulse Ox 98.7 F 113 H 20 158/101 H 100 02/21/20 11:28 02/21/20 11:28 02/21/20 11:28 02/21/20 11:28 02/21/20 11:28 MDM: 34yo F with PMH of anxiety, PTSD, asthma, anemia presents with a laceration to her left thumb. Last tetanus unknown. Also tachycardic and hypertensive, most likely secondary to pain and/or anxiety. -lac repair -tetanus -ibuprophen, xanax -repeat vitals and DC Repeat vital signs 02/21/20 13:26 Repeat vitals wnl DC home 02/21/20 13:26 Past History - Medical History Allergies/Adverse Reactions: Allergies Allergy/AdvReac Type Severity Reaction Status Date / Time shrimp Allergy Severe Verified 07/22/19 20:29 iodine [Iodine] Allergy Mild Swelling Verified 07/22/19 20:29 duloxetine HCl AdvReac Mild anxious, Verified 07/22/19 20:29 [From Cymbalta] panic tramadol HCl [From Rybix ODT] AdvReac Mild Nausea Verified 07/22/19 20:29 acetaminophen [From Tylenol] AdvReac Verified 07/22/19 20:29 Home Medications: Ambulatory Orders Alprazolam [Xanax] 2 mg PO BID 06/22/19 Ibuprofen [Motrin -] 600 mg PO TID #21 tablet 06/23/19 Oseltamivir Phosphate [Tamiflu] 75 mg PO BID #10 capsule 07/22/19 Anemia: Yes Asthma: Yes Cancer: No Cardiac Disorders: No COPD: No Diabetes: No HTN: No Psychiatric Problems: Yes (ANXIETY) Seizures: No Thyroid Disease: No - Surgical History Abdominal Surgery: No Appendectomy: No Cardiac Surgery: No Cholecystectomy: No Orthopedic Surgery: Yes (R KNEE) - Reproductive History Is Patient Now?: No Para: 1 Therapeutic (s) & number: Yes - Immunization History Immunization Up to Date: Yes - Psycho-Social/Smoking History Smoking Status: Yes Smoking History: Current every day smoker Have you smoked in the past 12 months: Yes Number of Cigarettes Smoked Daily: 2 If you are a former smoker, when did you quit?: June 2015 Information on smoking cessation initiated: Yes 'Breaking Loose' booklet given: 10/29/14 - Substance Abuse Hx (Audit-C & DAST Scrn) How often the patient has a drink containing alcohol: Monthly or less Score: In Men: 4 or > Positive; In Women: 3 or > Positive: 1 Screen Result (Pos requires Nsg. Audit-10AR): Negative *Physical Exam - Vital Signs Last Vital Signs Temp Pulse Resp BP Pulse Ox 98.7 F 113 H 20 158/101 H 100 02/21/20 11:28 02/21/20 11:28 02/21/20 11:28 02/21/20 11:28 02/21/20 11:28 Procedures - Laceration/Wound Repair Left 1st digit Wound Length: to 2.5 cm Wound Explored: clean Wound's Depth, Shape: superficial Irrigated w/ Saline: No Betadine Prep: No Anesthesia: 1% Lidocaine Amount of Anesthetic (ccs): 2 Wound Repaired With: Sutures Suture Size/Type: 5:0 Number of Sutures: 8 Layer Closure: No Sterile Dressing Applied: Yes Splint Applied: No Sling Applied: No Discharge - Discharge Information Problems reviewed: Yes Clinical Impression/Diagnosis: Laceration Laceration of thumb Qualifiers: Encounter type: initial encounter Damage to nail status: without damage Foreign body presence: without foreign body Laterality: left Qualified Code(s): S61.012A - Laceration without foreign body of left thumb without damage to nail, initial encounter Condition: Improved Disposition: HOME - Admission No - Follow up/Referral Referrals: Emergency Dept,Physician, [Emergency Physician] - ON STAFF,NOT [Primary Care Provider] - - Patient Discharge Instructions Patient Printed Discharge Instructions: DI for Laceration Repair, DI for Suture Removal Additional Instructions: Wound dressed with topical Bacitracin and sterile gauze. Follow up with your primary care doctor within 48-72 hours for a wound check. Keep sutures covered and dry for 24 hours then clean with soap and water daily - do not scrub. Apply bacitracin or neosporin twice a day with warm soaks and cover with gauze/dressings. Return to ED for suture removal 10-14 days. Return to the ED for any worsening pain, redness, streaking (red lines), swelling, fever or chills. Keep the wound clean and as dry as possible. Do not immerse or soak the wound in water. This means no swimming, washing dishes (unless thick rubber gloves are used), baths, or hot tubs until the stitches are removed or after about two weeks if absorbable suture material was used. Leave original bandages on the wound for the first 24 hours. After this time, showering or rinsing is recommended, rather than bathing. the first day, remove old bandages and gently cleanse the wound with soap and water. Cleansing twice a day prevents buildup of debris and will result in easier suture removal. Cleansing twice a day prevents buildup of debris and will result in better cosmesis and avoidance of infections and promote healing - Post Discharge Activity
[2020-02-21] MEDS ORDERED: IBUPROFEN 600 MG TABLET (FP) PO ONE ×2 (12:16→12:29)
[2020-02-21] MEDS ORDERED: DIPHTH,PERTUSS(ACELL),TET 0.5 ML DISP.SYRIN IM ONE ×2 (12:16→13:09)
[2020-02-21] MEDS ORDERED: ALPRAZolam 0.25 MG TABLET PO ONE (12:27)
--- NOTE | 2020-02-21 12:27 | PDOC ---
Attending Attestation - Resident Resident Name: Rashaun Walter - ED Attending Attestation I have performed the following: I have examined & evaluated the patient, The case was reviewed & discussed with the resident, I agree w/resident's findings & plan - HPI HPI: 02/21/20 12:27 34yo F with PMH of anxiety, PTSD, asthma, anemia presents with a laceration to her left thumb. States she cut it on a metal piece of a dry erase board that she was breaking in hands with her hands to fit into the garbage. States she maybe lost 3 fl oz of blood. [place] faint, but did not pass out. 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 - Physicial Exam PE: 02/21/20 13:01 General: NAD, well appearing Vascular: 2+ radialis pulses symmetric and equal. Neuro: distal hairpiece stylist strength 5/5. sensation grossly intact in median/radial/ulnar distribution. MSK: soft compartments, Cap refill <2 sec. 2+ radialis pulses bilaterally and symmetric. FDP/FDS intact. IP joint extension/flexion intact. no joint tenderness. FROM. Skin: color normal color, warm and well perfused. Laceration to distal left thumb on pulp aspect, measuring 1.5cm, linear, SQ involvement. nailbed is intact +bleeding and tenderness - Medical Decision Making 02/21/20 13:01 Vital Signs Temp Pulse Resp BP Pulse Ox 98.7 F 113 H 20 158/101 H 100 02/21/20 11:28 02/21/20 11:28 02/21/20 11:28 02/21/20 11:28 02/21/20 11:28 vitals reviewed, +tachy and hypertensive very anxious given analgesia, anxiolysis with xanax, reassess VS improved after therapy and pain control tetanus updated today laceration repaired with resident, see procedure note return in 10-14 days for suture removal wound care instructions reviewed, monitor for infection DC stable condition 02/21/20 13:05 02/21/20 13:09 Discharge - Discharge Information Problems reviewed: Yes Clinical Impression/Diagnosis: Laceration Laceration of thumb Qualifiers: Encounter type: initial encounter Damage to nail status: without damage Foreign body presence: without foreign body Laterality: left Qualified Code(s): S61.012A - Laceration without foreign body of left thumb without damage to nail, initial encounter Condition: Improved Disposition: HOME - Admission No - Follow up/Referral Referrals: ON STAFF,NOT [Primary Care Provider] - Emergency Dept,Physician, MD [Emergency Physician] - - Patient Discharge Instructions Patient Printed Discharge Instructions: DI for Laceration Repair, DI for Suture Removal Additional Instructions: Wound dressed with topical Bacitracin and sterile gauze. Follow up with your primary care doctor within 48-72 hours for a wound check. Keep sutures covered and dry for 24 hours then clean with soap and water daily - do not scrub. Apply bacitracin or neosporin twice a day with warm soaks and cover with gauze/dressings. Return to ED for suture removal 10-14 days. Return to the ED for any worsening pain, redness, streaking (red lines), swelling, fever or chills. Keep the wound clean and as dry as possible. Do not immerse or soak the wound in water. This means no swimming, washing dishes (unless thick rubber gloves are used), baths, or hot tubs until the stitches are removed or after about two weeks if absorbable suture material was used. Leave original bandages on the wound for the first 24 hours. After this time, showering or rinsing is recommended, rather than bathing. the first day, remove old bandages and gently cleanse the wound with soap and water. Cleansing twice a day prevents buildup of debris and will result in easier suture removal. Cleansing twice a day prevents buildup of debris and will result in better cosmesis and avoidance of infections and promote healing - Post Discharge Activity
[2020-02-21] MEDS ORDERED: ALPRAZolam 0.25 MG TABLET ONE (12:29)
[2020-02-21 13:28] VITALS: BP 124/83; PULSE 83
== END 2020-02-21 13:26 | disposition home or self-care (01) ==
LOC: JER 11:23
PROC: 0HQGXZZ Repair Left Hand Skin, External Approach (ICD-10-PCS; principal; 2020-02-21)
PROC: 3E0234Z Introduction of Serum, Toxoid and Vaccine into Muscle, Percutaneous Approach (ICD-10-PCS; 2020-02-21)
DX: S61.012A Laceration without foreign body of left thumb without damage to nail, initial encounter (principal)
CPT/HCPCS: 90715; 99284-25

== ENCOUNTER 2021-11-09 20:26 | Emergency (ER) | payer OTHER ==
[2021-11-09 20:51] VITALS: BP 138/94; PULSE 96; TEMP 98.4; BMI 25.4
== END 2021-11-09 22:36 | disposition home or self-care (01) ==
LOC: JER 20:26
DX: F07.9 Unspecified personality and behavioral disorder due to known physiological condition (principal); M79.10 Myalgia, unspecified site
CPT/HCPCS: 0241U-QW; 93005; 93010; 99284-25

== ENCOUNTER 2024-04-09 10:59 | Emergency (ER) | payer OTHER ==
[2024-04-09 11:09] VITALS: TEMP 98.8; BMI 23.4
[2024-04-09] MEDS ORDERED: KETOROLAC TROMETHAMINE 30 MG/1 ML VIAL ONE (12:51)
[2024-04-09] MEDS ORDERED: LIDOCAINE 5% TOPICAL PATCH ONE (12:51)
[2024-04-09] MEDS: LIDOCAINE 4% PATCH TP ONE (13:08)
[2024-04-09] MEDS: KETOROLAC TROMETHAMINE 30 MG/1 ML VIAL IVPUSH ONE (13:08)
[2024-04-09 13:22] LABS: BASO % 0.9 % (0-2.0); EOS % 3.2 % (0-4.5); HEMATOCRIT 39.8 % (32.4-45.2); HEMOGLOBIN 13.5 GM/dL (10.7-15.3); MCHC 33.9 g/dl (32.0-36.0); MEAN CELL VOLUME 91.3 fl (80-96); MEAN PLT VOLUME 6.8 fl (7.5-11.1); NEUT % 64.9 % (42.8-82.8); PLATELET COUNT 231 10^3/uL (134-434); RBC 4.35 M/mm3 (3.60-5.2); RDW 13.6 % (11.6-15.6); WHITE BLOOD COUNT 5.5 K/mm3 (4.0-10.0)
[2024-04-09 13:44] LABS: POTASSIUM 3.9 mmol/L (3.5-5.1)
[2024-04-09 13:46] LABS: CALCIUM 8.9 mg/dL (8.5-10.1)
[2024-04-09 13:47] LABS: BLOOD UREA NITROGEN 9.9 mg/dL (7-18)
[2024-04-09 13:50] LABS: CREATININE 0.7 mg/dL (0.55-1.3)
[2024-04-09 13:51] LABS: BILIRUBIN,TOTAL 0.4 mg/dL (0.2-1); TOT PROT 7.3 g/dl (6.4-8.2)
[2024-04-09 14:31] LABS: EPI CELLS 30 /uL (0-25.1); HYALINE CASTS 0 /uL (0-3.1); URINE APPEARANCE CLEAR; URINE BACTERIA 187 /uL (0-1359); URINE BILIRUBIN NEGATIVE (NEGATIVE); URINE COLOR YELLOW; URINE GLUCOSE (UA) NEGATIVE (NEGATIVE); URINE KETONE 1+ (NEGATIVE); URINE LEUK ESTERASE 1+ (NEGATIVE); URINE NITRITE NEGATIVE (NEGATIVE); URINE PROTEIN NEGATIVE (NEGATIVE); URINE RBC 15 /uL (0-23.9); URINE UROBILINOGEN 0.2 mg/dL (0.2-1.0); URINE WBC 37 /uL (0-25.8)
[2024-04-09 16:26] VITALS: BP 135/89; PULSE 89; RESP 19
[2024-04-09] MEDS ORDERED: CYCLOBENZAPRINE HCL 10 MG TABLET (FP) ONE (17:46)
[2024-04-09] MEDS: CYCLOBENZAPRINE HCL 10 MG TABLET (FP) PO ONE (17:49)
[2024-04-09] MEDS ORDERED: LIDOCAINE PATCH REMOVAL MC SCH (22:00)
== END 2024-04-09 20:58 | disposition home or self-care (01) ==
LOC: JER 10:59
PROC: 3E0333Z Introduction of Anti-inflammatory into Peripheral Vein, Percutaneous Approach (ICD-10-PCS; principal; 2024-04-09)
DX: M54.50 Low back pain, unspecified (principal); R10.31 Right lower quadrant pain
CPT/HCPCS: 36415; 74176-TC; 76856-TC; 80053; 81003; 84703; 85025; 87086; 99284-25